=== PATIENT | female | born 1965 | race Caucasian/White ===

== ENCOUNTER 2018-05-10 07:49 | Day surgery (SDC) | payer BC ==
[~2018-05-10] VITALS: Ht 170.2 cm; Wt 108.7 kg
[~2018-05-10 07:49] MED LIST: ALPR.5; ASPI81EC PO; BUSP5 PO; BUTASPCAFT PO; CEPH500 PO; CLON1; CYCL10 PO; DICL25ER PO; ESOM20 PO; ESTR2 PO; FERRO-TIME325 MG PO; HYDACE5 PO; HYDGUAL120 PO; IBUP600; KETO10 PO; ONDA4ODT MM; OXYACE5T PO; OXYC5 PO; PARO20 PO; PRAM.125 PO; PREG50; PROM25 PO; RXHYDACE PO; RXHYDGUAS PO; Super B Comple150 MG PO; TRAM50 PO; TRAZ50 PO; VERA240ER PO; Zanaflex4 M1
== END 2018-05-10 14:20 | disposition home or self-care (01) ==
LOC: ORSCSDS 07:49
PROVIDERS: Otolaryngology
PROC: 0CT80ZZ Resection of Right Parotid Gland, Open Approach (ICD-10-PCS; principal; 2018-05-10 09:00)
PROC: 00BM0ZZ Excision of Facial Nerve, Open Approach (ICD-10-PCS; principal; 2018-05-10 09:00)
DX: K11.23 Chronic sialoadenitis (principal); F17.210 Nicotine dependence, cigarettes, uncomplicated; M79.7 Fibromyalgia; E66.01 Morbid (severe) obesity due to excess calories; Z68.37 Body mass index [BMI] 37.0-37.9, adult; Z79.899 Other long term (current) drug therapy
CPT/HCPCS: 88305; 88307; J0171; J1100; J1885; J2250; J2405; J3010; J7120

== ENCOUNTER → 2018-08-29 | Outpatient (CLI) | payer BC ==
[2018-08-29 16:36] LABS: BASOPHILS ABSOLUTE AUTO 0.01 K/mm3 (0.00-0.23); BASOPHILS PERCENT AUTO 0 % (0-2); EOSINOPHILS ABSOLUTE AUTO 0.01 K/mm3 (0.00-0.68); EOSINOPHILS PERCENT AUTO 0 % (0-6); Hematocrit 34.5 % (33.0-51.0); Hemoglobin 11.2 g/dL (11.5-16.0); IMMATURE GRAN ABSOLUTE AUTO 0.01 K/mm3 (0.00-0.10); IMMATURE GRAN PERCENT AUTO 0 % (0-1); LYMPHOCYTES ABSOLUTE AUTO 1.16 K/mm3 (0.84-5.20); LYMPHOCYTES PERCENT AUTO 23 % (21-46); MONOCYTES ABSOLUTE AUTO 0.26 K/mm3 (0.16-1.47); MONOCYTES PERCENT AUTO 5 % (4-13); Mean Corpuscular HGB Conc 32.5 g/dL (31.5-36.5); Mean Corpuscular Volume 89 fL (80-100); Mean Platelet Volume 9.7 fL (9.1-12.4); NEUTROPHILS ABSOLUTE AUTO 3.64 K/mm3 (1.96-9.15); NEUTROPHILS PERCENT AUTO 72 % (41-73); Platelet Count 254 K/mm3 (150-400); RDW Coefficient Variation 13.9 % (11.7-14.2); RDW Standard Deviation 44.9 fL (35.1-46.3); Red Blood Cell Count 3.86 M/mm3 (3.80-5.20); White Blood Cell Count 5.09 K/mm3 (4.00-11.30)
[2018-08-29 16:52] LABS: Anion Gap 14 mmol/L (6-16); Blood Urea Nitrogen 14 mg/dL (8-24); Bun/Creatinine Ratio 17.3 (12.0-20.0); CO2, Blood 20 mmol/L (21-32); Calcium, Blood 8.5 mg/dL (8.5-10.1); Chloride, Blood 104 mmol/L (98-108); Creatinine, Blood 0.81 mg/dL (0.40-1.00); Glomerular Filtration Rate >60 (60-); Glucose, Blood 191 mg/dL (70-99); Potassium, Blood 3.8 mmol/L (3.5-5.5); Sodium, Blood 138 mmol/L (136-145)
== END ==
LOC: LAB SHORT 16:32 → LAB EV 16:32
PROVIDERS: Emergency Medicine
DX: E86.0 Dehydration (principal)
CPT/HCPCS: 80048; 85025

== ENCOUNTER 2023-11-06 01:22 | Observation (INO) | payer OTHER ==
[~2023-11-06] VITALS: Ht 170.2 cm; Wt 76.2 kg
[2023-11-06] MEDS ORDERED: BUPRENORPHINE HC8 MG SL (01:40)
[2023-11-06] MEDS ORDERED: CELEBREX200 MG PO (01:41)
[2023-11-06] MEDS ORDERED: LANSOPRAZOLE30 MG PO (01:41)
[2023-11-06] MEDS ORDERED: PARO30 PO (01:41)
[2023-11-06] MEDS ORDERED: HYDROCODONE-AC1 EAC7 PO (01:42)
[2023-11-06] MEDS ORDERED: Amphetamine Sal20 MG PO (01:42)
[2023-11-06] MEDS ORDERED: TOPI50 PO (01:43)
[2023-11-06] MEDS ORDERED: Ventolin/Prove6.7 GM (01:43)
[2023-11-06 02:15] LABS: Hematocrit 37.6 % (33.0-51.0); Hemoglobin 12.6 g/dL (11.5-16.0); Mean Corpuscular HGB 32.7 pg (26.0-34.0); Mean Corpuscular HGB Conc 33.5 g/dL (31.5-36.5); Mean Corpuscular Volume 98 fL (80-100); Mean Platelet Volume 9.5 fL (9.1-12.4); Platelet Count 280 K/mm3 (150-400); RDW Coefficient Variation 14.6 % (11.7-14.2); RDW Standard Deviation 50.5 fL (35.1-46.3); Red Blood Cell Count 3.85 M/mm3 (3.80-5.20); White Blood Cell Count 9.58 K/mm3 (4.00-11.30)
[2023-11-06 02:18] LABS: Alanine Aminotransfer (ALT/SGP 22 U/L (12-78); Albumin, Blood 3.1 g/dL (3.4-5.0); Albumin/Globulin Ratio 0.7 (0.8-1.8); Alk Phos 95 U/L (50-136); Anion Gap 1 mmol/L (6-16); Aspartate Aminotrans (AST/SGOT 23 U/L (12-37); Bilirubin, Total <0.1 mg/dL (0.1-1.0); Blood Urea Nitrogen 27 mg/dL (8-24); Bun/Creatinine Ratio 39.6 (12.0-20.0); CO2, Blood 28 mmol/L (21-32); Calcium, Blood 8.4 mg/dL (8.5-10.1); Chloride, Blood 111 mmol/L (98-108); Creatinine, Blood 0.68 mg/dL (0.40-1.00); Globulin, Blood 4.3 g/dL (2.2-4.0); Glomerular Filtration Rate 100 (60-); Glucose, Blood 134 mg/dL (70-99); Potassium, Blood 3.5 mmol/L (3.5-5.5); Sodium, Blood 140 mmol/L (136-145); Total Protein, Blood 7.4 g/dL (6.4-8.2)
[2023-11-06] MEDS ORDERED: NS 1,000 ML IV SCH (02:30)
[2023-11-06] MEDS ORDERED: LevoFLOXacin 750 MG/D5W 150ML 150 ML IV ONE (02:30)
[2023-11-06 02:58] LABS: BASOPHILS PERCENT MAN 0 % (0-2); EOSINOPHILS ABSOLUTE MAN 0.19 K/mm3 (0.00-0.68); EOSINOPHILS PERCENT MAN 2 % (0-6); LYMPHOCYTES % ATYPICAL MANUAL 1 % (0-0); LYMPHOCYTES PERCENT MAN 46 % (21-46); MONOCYTES ABSOLUTE MAN 0.76 K/mm3 (0.16-1.47); MONOCYTES PERCENT MAN 8 % (4-13); NEUTROPHILS ABSOLUTE MAN 4.11 K/mm3 (1.96-9.15); SEG NEUTROPHILS PERCENT MAN 43 % (41-73); TOTAL CELLS COUNTED 100
[2023-11-06 03:04] LABS: Influenza A, PCR NEGATIVE (NEGATIVE); Influenza B, PCR NEGATIVE (NEGATIVE); Resp Syncytial Virus, PCR NEGATIVE (NEGATIVE); SARS-Cov-2 (COVID-19) PCR, MMC NEGATIVE (NEGATIVE)
[2023-11-06] MEDS ORDERED: Acetaminophen 325 MG TABLET PO PRN (04:25)
[2023-11-06] MEDS ORDERED: FLU VACC QS2023-24(6MOS UP)/PF 60 MCG/0.5 ML SYRINGE IM ONE (04:25)
[2023-11-06] MEDS ORDERED: Albuterol 2.5 MG/3 ML VIAL INH PRN (05:10)
[2023-11-06 08:30] VITALS: BP 140/68
[2023-11-06] MEDS ORDERED: Enoxaparin 40 MG/0.4 ML SYR SC SCH (09:00)
[2023-11-06] MEDS ORDERED: Lactobacil 2-S.Thermo-Bifido 1 1 Cap PO SCH (09:00)
[2023-11-07] MEDS ORDERED: LevoFLOXacin 750 MG/D5W 150ML 150 ML IV SCH (09:00)
== END 2023-11-06 08:31 | disposition home or self-care (01) ==
LOC: ER 01:22 → MEDS 01:23
PROVIDERS: Emergency Medicine; ADMIT Student in an Organized Health Care Education/Training Program
DX: J96.01 Acute respiratory failure with hypoxia (principal); F17.210 Nicotine dependence, cigarettes, uncomplicated; J44.1 Chronic obstructive pulmonary disease with (acute) exacerbation; J15.9 Unspecified bacterial pneumonia; Z79.899 Other long term (current) drug therapy; Z88.1 Allergy status to other antibiotic agents; Z88.8 Allergy status to other drugs, medicaments and biological substances
CPT/HCPCS: 0241U; 36415; 71046; 80053; 83605; 84145; 85025; 85379; 87040; 87081; 87430; 93005; 93010; 94760; 96361; 96365; 96366; 99285-25; G0378; J1956; J7030

== ENCOUNTER 2024-05-29 11:06 | Inpatient (IN) | payer OTHER ==
[~2024-05-29] VITALS: Ht 170.2 cm; Wt 68.0 kg
[~2024-05-29 11:06] MED LIST changes: +Amphetamine Sal20 MG PO; +BUPRENORPHINE HC8 MG SL; +CELEBREX200 MG PO; +HYDROCODONE-AC1 EAC7 PO; +LANSOPRAZOLE30 MG PO; +MIRAPEX0.25 M3 PO; +NEBIVOLOL HCL5 MG PO; +PARO30 PO; -PRAM.125 PO; +SPIRIVA RESPIMAT4 G3 INH; +TOPIRAMATE ER50 M1 PO; +TRAZ100 PO; -TRAZ50 PO; +Ventolin/Prove6.7 GM
[2024-05-29] MEDS ORDERED: Ipratropium/Albuterol SulF 2.5-0.5MG/3 ML Amp INH ONE (11:35)
[2024-05-29] MEDS ORDERED: NS 1,000 ML IV SCH (11:35)
[2024-05-29] MEDS ORDERED: Diltiazem HCl 5 MG / ML 5ML Vial IV ONE (11:40)
[2024-05-29 11:43] LABS: BASOPHILS ABSOLUTE AUTO 0.03 K/mm3 (0.00-0.23); BASOPHILS PERCENT AUTO 0 % (0-2); EOSINOPHILS ABSOLUTE AUTO 0.07 K/mm3 (0.00-0.68); EOSINOPHILS PERCENT AUTO 1 % (0-6); Hematocrit 37.3 % (33.0-51.0); Hemoglobin 11.7 g/dL (11.5-16.0); IMMATURE GRAN PERCENT AUTO 1 % (0-1); LYMPHOCYTES ABSOLUTE AUTO 2.75 K/mm3 (0.84-5.20); LYMPHOCYTES PERCENT AUTO 21 % (21-46); MONOCYTES ABSOLUTE AUTO 1.14 K/mm3 (0.16-1.47); MONOCYTES PERCENT AUTO 9 % (4-13); Mean Corpuscular HGB 28.9 pg (26.0-34.0); Mean Corpuscular HGB Conc 31.4 g/dL (31.5-36.5); Mean Corpuscular Volume 92 fL (80-100); Mean Platelet Volume 9.8 fL (9.1-12.4); NEUTROPHILS ABSOLUTE AUTO 9.28 K/mm3 (1.96-9.15); NEUTROPHILS PERCENT AUTO 70 % (41-73); Platelet Count 257 K/mm3 (150-400); RDW Coefficient Variation 15.8 % (11.7-14.2); RDW Standard Deviation 53.8 fL (35.1-46.3); Red Blood Cell Count 4.05 M/mm3 (3.80-5.20); White Blood Cell Count 13.37 K/mm3 (4.00-11.30)
[2024-05-29 11:47] LABS: Base Excess Venous 5.3 mmol/L; Bicarbonate Venous 28.6 mmol/L (24.0-30.0); PCO2 Venous 44.4 mmHg (38-42); pH Blood Venous 7.43 (7.34-7.37)
[2024-05-29 12:05] LABS: Albumin, Blood 1.7 g/dL (3.4-5.0); Albumin/Globulin Ratio 0.3 (0.8-1.8); Bilirubin, Total 0.3 mg/dL (0.1-1.0); Bun/Creatinine Ratio 27.6 (12.0-20.0); Calcium, Blood 9.7 mg/dL (8.5-10.1); Creatinine, Blood 0.44 mg/dL (0.40-1.00); Globulin, Blood 5.1 g/dL (2.2-4.0); Magnesium, Blood 1.8 mg/dL (1.6-2.4); Potassium, Blood 3.3 mmol/L (3.5-5.5); Total Protein, Blood 6.8 g/dL (6.4-8.2)
[2024-05-29 13:06] LABS: Influenza A, PCR NEGATIVE (NEGATIVE); Influenza B, PCR NEGATIVE (NEGATIVE); Resp Syncytial Virus, PCR NEGATIVE (NEGATIVE); SARS-Cov-2 (COVID-19) PCR, MMC NEGATIVE (NEGATIVE)
[2024-05-29] MEDS ORDERED: LevoFLOXacin 750 MG/D5W 150ML 150 ML IV ONE (13:45)
[2024-05-29] MEDS ORDERED: Potassium Chl 20MEQ/Water100ML 100 ML IV SCH (14:00)
[2024-05-29] MEDS ORDERED: NS 1,000 ML IV ONE (14:09)
[2024-05-29] MEDS ORDERED: Ipratropium/Albuterol SulF 2.5-0.5MG/3 ML Amp INH SCH (14:55)
[2024-05-29] MEDS ORDERED: Albuterol 2.5 MG/3 ML VIAL INH PRN (14:55)
[2024-05-29] MEDS ORDERED: TraZODone HCl 100 MG Tab PO PRN (14:55)
[2024-05-29] MEDS ORDERED: Tiotropium Bromide 2.5 MCG/ACT MIST INHAL (10 ACT/4 GM) INH SCH (14:55)
[2024-05-29] MEDS ORDERED: Furosemide 10 MG/ML 4ML Vial IV SCH (15:00)
[2024-05-29] MEDS ORDERED: BUPRENORPHINE HC8 MG SL (15:01)
[2024-05-29] MEDS ORDERED: Metoprolol Tartrate 1 MG/ML 5 ML VIAL IV PRN (15:10)
[2024-05-29 16:55] LABS: U Amphetamine Screen Not Detected; U Barbituate Screen Not Detected; U Benzodiazapine Screen Not Detected; U Buprenorphine Screen DETECTED; U Cannabinoids Screen Not Detected; U Cocaine Screen Not Detected; U Methadone Screen Not Detected; U Methamphetamine Screen Not Detected; U Opiates Screen Not Detected; U Oxycodone Screen Not Detected; U Phencyclidine Screen Not Detected
[2024-05-29] MEDS ORDERED: Carvedilol 6.25 MG Tab PO SCH (17:00)
[2024-05-29 17:46] VITALS: BP 127/73
--- NOTE | 2024-05-29 18:10 | NUR ---
PT ARRIVE TO FLOOR VIA CART AT 1735. PT IS MILDLY CONFUSED AND AO1-2. PT IS CURRENTLY SETTLED INTO ROOM WITH FAMILY AT BEDSIDE. BED ALARM IS PLACED REPORT FROM ED STATED PT HAS BEEN CONFUSED AND IMPULSIVE.CURRENTLY ON 4L TELE READING SINUS TACH @102. PT RESTING IN BED WITH CALL LIGHT WITHIN REACH. WILL CONTINUE TO SCOTT
[2024-05-29] MEDS ORDERED: ONDA4ODT MM (18:42)
[2024-05-29] MEDS ORDERED: OXYCODONE HCL PO (18:45)
[2024-05-29] MEDS ORDERED: LORazepam 2 MG/ML 1ML Injection IV PRN (19:25)
[2024-05-29] MEDS ORDERED: buprenorphine HCL 2 MG TAB.SUBL SL SCH (21:00)
[2024-05-29] MEDS ORDERED: Topiramate 25 MG Tab PO SCH (21:00)
[2024-05-29] MEDS ORDERED: Lactobacil 2-S.Thermo-Bifido 1 1 Cap PO SCH (21:00)
[2024-05-29] MEDS ORDERED: Pramipexole DI-HCL 0.125 MG Tab PO SCH (21:00)
[2024-05-29] MEDS ORDERED: Cyclobenzaprine HCl 10 MG Tab PO SCH (21:00)
[2024-05-30 02:28] VITALS: BP 140/75
[2024-05-30] MEDS ORDERED: Omeprazole 20 MG CapCR PO SCH (06:00)
[2024-05-30 07:43] VITALS: BP 132/85
[2024-05-30] MEDS ORDERED: Estradiol 1 MG Tab PO SCH (09:00)
[2024-05-30] MEDS ORDERED: Enoxaparin 40 MG/0.4 ML SYR SC SCH (09:00)
[2024-05-30] MEDS ORDERED: PARoxetine HCl 20 MG Tab PO SCH (09:00)
[2024-05-30 09:56] VITALS: BP 129/85
[2024-05-30 09:59] LABS: PO2 Arterial 158 mmHg (80-100); pH Blood Arterial 7.25 (7.35-7.45)
[2024-05-30 10:00] LABS: PCO2 Arterial 71 mmHg (35-45)
[2024-05-30 10:11] VITALS: BP 131/85
[2024-05-30 10:13] LABS: BASOPHILS ABSOLUTE AUTO 0.02 K/mm3 (0.00-0.23); BASOPHILS PERCENT AUTO 0 % (0-2); EOSINOPHILS ABSOLUTE AUTO 0.03 K/mm3 (0.00-0.68); EOSINOPHILS PERCENT AUTO 0 % (0-6); Hematocrit 36.5 % (33.0-51.0); Hemoglobin 11.2 g/dL (11.5-16.0); IMMATURE GRAN ABSOLUTE AUTO 0.12 K/mm3 (0.00-0.10); IMMATURE GRAN PERCENT AUTO 1 % (0-1); LYMPHOCYTES ABSOLUTE AUTO 2.35 K/mm3 (0.84-5.20); LYMPHOCYTES PERCENT AUTO 16 % (21-46); MONOCYTES ABSOLUTE AUTO 1.18 K/mm3 (0.16-1.47); MONOCYTES PERCENT AUTO 8 % (4-13); Mean Corpuscular HGB 28.1 pg (26.0-34.0); Mean Corpuscular HGB Conc 30.7 g/dL (31.5-36.5); Mean Corpuscular Volume 92 fL (80-100); Mean Platelet Volume 9.7 fL (9.1-12.4); NEUTROPHILS ABSOLUTE AUTO 10.72 K/mm3 (1.96-9.15); NEUTROPHILS PERCENT AUTO 74 % (41-73); Platelet Count 302 K/mm3 (150-400); RDW Coefficient Variation 16.1 % (11.7-14.2); RDW Standard Deviation 53.9 fL (35.1-46.3); Red Blood Cell Count 3.98 M/mm3 (3.80-5.20); White Blood Cell Count 14.42 K/mm3 (4.00-11.30)
[2024-05-30 10:31] LABS: Albumin, Blood 1.7 g/dL (3.4-5.0); Albumin/Globulin Ratio 0.3 (0.8-1.8); Bilirubin, Total 0.2 mg/dL (0.1-1.0); Bun/Creatinine Ratio 24.3 (12.0-20.0); Calcium, Blood 9.5 mg/dL (8.5-10.1); Creatinine, Blood 0.45 mg/dL (0.40-1.00); Potassium, Blood 3.4 mmol/L (3.5-5.5); Total Protein, Blood 6.7 g/dL (6.4-8.2)
[2024-05-30 10:43] VITALS: BP 153/92
--- NOTE | 2024-05-30 11:04 | NUR ---
Pt Confused and unresponsive, pt on 7L NC, statered to deSat down to 70%, pt placed on 15L non-rebreather, MD notifed. MD order Labs, chest x-ray, ABG, EKG which was ST HR 119, and to give Lasix 40mg IV. Pt transfered to PCU, Bedside shift report given, safety ensured during transfer.
[2024-05-30] MEDS ORDERED: Atropine Sulfate 1% Opth Soln 2ML BTL SL PRN (11:20)
[2024-05-30] MEDS ORDERED: Ondansetron HCl 2 MG / ML 2ML Vial IV PRN (11:20)
[2024-05-30] MEDS ORDERED: LORazepam 2 MG/ML 1ML Injection IV PRN (11:20)
[2024-05-30] MEDS ORDERED: Morphine Sulfate 10 MG/ML 1MLSYR IV PRN (11:20)
[2024-05-30] MEDS ORDERED: Morphine Sulfate 20 MG/1ML 1 ML Oral Syringe SL PRN (11:20)
[2024-05-30] MEDS ORDERED: Scopolamine Hydrobromide Patch TOP PRN (11:20)
[2024-05-30] MEDS ORDERED: Pramipexole DI-HCL 0.125 MG Tab PO PRN (11:30)
[2024-05-30] MEDS ORDERED: Cyclobenzaprine HCl 10 MG Tab PO PRN (11:30)
[2024-05-30] MEDS ORDERED: Ipratropium/Albuterol SulF 2.5-0.5MG/3 ML Amp INH PRN (11:35)
--- NOTE | 2024-05-30 11:53 | NUR ---
MET WITH DR. GUILLORY AND PT'S DTR, AMILCAR AT PT'S BEDSIDE. RAPID RESPONSE WAS CALLED FOR ACUTE CHANGES IN MENTATION. RT, LAB AND IMAGING. WILL MEET WITH FAMILY AFTER TEST RESULTS ARE AVAILABLE. ASSISTED PRIMARY RN WITH TRANSFERING PT TO PCU.
[2024-05-30] MEDS ORDERED: HYDROmorphone HCl/Pf 1MG SYR IV STA (12:06)
[2024-05-30] MEDS ORDERED: Haloperidol Lactate Inj. 5 MG/ML Injection IV PRN (12:25)
--- NOTE | 2024-05-30 13:57 | NUR ---
CHANGE IN STATUS TO COMFORT CARE CALLED TO ROOM BY GOLD TOOLER FOR ADDITIONAL SUPPORT. PT WAS VERY AGGITATED, TRYING TO SCOOT OUT OF BED, THROWING HER LEGS OFF THE SIDE OF BED. PRIMARY RN ADMINISTERING MEDICATIONS VIA IV, REQUIRED A SECOND STAFF MEMBER TO HOLD HER ARM STILL FOR MED ADMINISTRATION. THERAPUTIC LISTENING PROVIDED FOR FAMILY. PT'S SPOUSESARAHI IS DISPLAYING SIGNES OF ANTICIPATORY GREIF. SPOUSE, DAUGHTER, FATHER, BROTHER, NIECE ALL AT BEDSIDE. PC TO REMAIN AVAILABLE NEEDED.
--- NOTE | 2024-05-30 14:38 | NUR ---
PT ARRIVES TO PCU 9 FROM MEDICAL FLOOR IN RESPIRATORY DISTRESS. RT AT BEDSIDE TO PLACE PT ON BIPAP. PT IS EXTREMEMMLY RESTLESS, ATTEMPTING TO CLIMG OUT OF BED AND PULL OFF ALL MONITORING EQUIPMENT ALONG WITH BIPAP. PROVIDER AND WIND TURBINE INSTALLER AT BEDSIDE TO DISCUSS PLAN OF CARE. FLOOR RN AT BEDSIDE FOR BEDSIDE REPORT WITH THIS RN. PT A&OX0. PT RESPONDING TO PAIN AND WILL BRIEFLY OPEN EYES WHEN ASKED BUT WILL NOT FOLLOW ANY OTHER COMMANDS. MULTIPLE STAFF AT BEDSIDE TO REDIRECT PT AND TO REPEATEDLY REPOSITON PT IN BED. PT CONTINUES TO BE RESTLESS AND NONCOMPLIANT WITH BIPAP AND IS TRIPODING IN BED. FAMIILY AT BEDSIDE TO DISCUSS PLAN FOR POSSIBLE INTUBATION WITH CARE TEAM. AFTER FURTHER DISCUSSION AND EDUCATION ABOUT INTUBATION WITH FAMILY, FAMILY DECIDED THAT THEY WOULD LIKE TO PLACE PT ON COMFORT CARE. PT CONTINUES TO BE RESTLESS AND TRYING TO CLIMB OUT OF BED AND REMOVE MONITORING EQUIPMENT AND BIPAP. PT MEDICATED PER PROVIDER EMILY. BIPAP REMOVED AND PT WAS PLACED ON 5L NC. PEARL PLACED AND PT WAS REPOSITIONED IN BED FOR COMFORT. PT APPEARS TO BE RESTING COMFORTABLY IN BED AT THIS TIME. FAMILY REMAINS AT BEDSIDE.
[2024-05-30] MEDS ORDERED: LevoFLOXacin 750 MG/D5W 150ML 150 ML IV SCH (16:00)
--- NOTE | 2024-05-30 18:53 | NUR ---
PT APPEARS TO BE RESTING IN BED COMFORTABLY IN BED SINCE PREVIOUS NOTE. SPIRITUAL CARE CAME TO BEDSIDE TO SEE FAMILY. FAMILY REMAINS AT BEDSIDE. PT WAKING UP OCCASIONALLY AND SMILING AT FAMILY THEN FALLING BACK ASLEEP. PTS BREATHING SOUNDS WET. THIS RN ATTEMPTED TO SUCTION PT AND PT PULLED AWAY FROM THIS RN AFTER THIS RN EXPLAINES PROCEDURE TO PT AND BECAME BRIEFLY AGITATED AND THEN WENT BACK TO SLEEP. ORAL ATROPINE ADMINISTERD. FAMILY REPORTS THAT PT LOOKS LIKE SHE IS RESTING COMFORTABLY. PEARL DRAINING CLEAR YELLOW URINE. NO SIGNIFICANT EVENTS HAPPENEDS SINCE PREVIOUS NOTE.
[2024-05-30] MEDS ORDERED: Furosemide 10 MG/ML 4ML Vial IV SCH (21:00)
--- NOTE | 2024-05-31 04:29 | NUR ---
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 FAMILY AT BEDSIDE OVERNIGHT. PATIENT MEDICATED NEEDED WITH PRN MEDICATIONS FOR AIR HUNGER, PAIN, ANXIETY, AGITATION, AND SECRETIONS. BREATHING LESS LABORED, PATIENT APPEARS MORE COMFORTABLE. WEANED O2, NOW ON ROOM AIR SATS IN THE 60S. Q2H TURNS IMPLEMENTED. GOOD UOP FOLLOWING IV LASIX ADMINISTRATION FOR PULM EDEMA. PEARL CATHETER PRESENT. PENDING HOSPICE CONSULT. WILL CONTINUE TO MEDICATE TO KEEP PATIENT COMFORTABLE. ORAL CARE PROVIDED.
--- NOTE | 2024-05-31 07:39 | NUR ---
Pt's work of breathing noted a bit labored. Coarse breath sounds audible at the bedside. Pt otherwise appears to be non distressed, calm, relaxed and resting with eyes closed. Given roxinol and atropine at this time, as well as scheduled IV lasix. Male visitor at bedside, sleeping in the recliner.
--- NOTE | 2024-05-31 08:33 | NUR ---
Effect of roxinol and made her breathing more relaxed.
--- NOTE | 2024-05-31 09:00 | NUR ---
COMFORT CARE SUPPORTIVE VISIT PT IS ACTIVELY TRANSITIONING TO EOL. BLE COOL TO THE TOUCH. BRONCHIAL SECRETIONS AUDIBLE FROM APX 5 FT AWAY. ACCESSORY MUSCLE BREATHING. PRIMARY RN AT BEDSIDE TO PROVIDE RX INTERVENTIONS FOR EASE OF BREATHING. THERAPUTIC LISTENING PROVIDED FOR PT'S SPOUSE, SARAHI. PC WILL REMAIN AVAILABLE NEEDED.
--- NOTE | 2024-05-31 09:41 | NUR ---
pt repositioned and turned to her left side. Showing some signs of agitation and mild dypsnea. Given Haldol and roxinol for relief. Family at bedside.
--- NOTE | 2024-05-31 10:43 | NUR ---
Given roxanol and atropine per prn orders for discomfort and coarse secretions.
--- NOTE | 2024-05-31 13:34 | NUR ---
Dr Heller was here and pt was pronounced at 1308. Family is at the bedside. Spiritual care Fausto S. here to spend some time with the family.
--- NOTE | 2024-05-31 14:39 | NUR ---
Spiritual care visit conducted. Minutes after patient takes her last breath, I visit with the family. They are grieving appropraitely, I listened as they talked about her medical struggles, her personality and their strong family unit. I then provided an end of life prayer. The family responded well showed signs of being comforted.
--- NOTE | 2024-05-31 20:45 | NUR ---
UPDATE PT'S NEXT OF KIN NOTIFIED THAT REPRESENTIVE FROM [facility] (JUAN DIOR) PICKED UP PT.
== END 2024-05-31 20:50 | DRG 871 ==
LOC: ER 11:06 → PCU 14:40 → MEDS 14:40 → PCU 05-30 10:23
PROVIDERS: Student in an Organized Health Care Education/Training Program; ADMIT Family Medicine
PROC: 5A09357 Assistance with Respiratory Ventilation, Less than 24 Consecutive Hours, Continuous Positive Airway Pressure (ICD-10-PCS; principal; 2024-05-29)
PROC: 0T9B70Z Drainage of Bladder with Drainage Device, Via Natural or Artificial Opening (ICD-10-PCS; 2024-05-29)
PROC: 3E03329 Introduction of Other Anti-infective into Peripheral Vein, Percutaneous Approach (ICD-10-PCS; 2024-05-29)
PROC: 4A033R1 Measurement of Arterial Saturation, Peripheral, Percutaneous Approach (ICD-10-PCS; 2024-05-29)
DX: A41.9 Sepsis, unspecified organism (principal); G92.8 Other toxic encephalopathy; J96.21 Acute and chronic respiratory failure with hypoxia; J18.9 Pneumonia, unspecified organism; J96.22 Acute and chronic respiratory failure with hypercapnia; C78.7 Secondary malignant neoplasm of liver and intrahepatic bile duct; J90 Pleural effusion, not elsewhere classified; J44.0 Chronic obstructive pulmonary disease with (acute) lower respiratory infection; C34.12 Malignant neoplasm of upper lobe, left bronchus or lung; Z66 Do not resuscitate; Z51.5 Encounter for palliative care; F32.A Depression, unspecified; F17.210 Nicotine dependence, cigarettes, uncomplicated; E87.6 Hypokalemia; M79.7 Fibromyalgia; K21.9 Gastro-esophageal reflux disease without esophagitis; J30.2 Other seasonal allergic rhinitis; I48.0 Paroxysmal atrial fibrillation; E89.0 Postprocedural hypothyroidism; E05.00 Thyrotoxicosis with diffuse goiter without thyrotoxic crisis or storm; Z99.81 Dependence on supplemental oxygen; Z88.0 Allergy status to penicillin; Z88.1 Allergy status to other antibiotic agents; Z88.8 Allergy status to other drugs, medicaments and biological substances; Z79.899 Other long term (current) drug therapy; Z98.890 Other specified postprocedural states; Z90.710 Acquired absence of both cervix and uterus; Z90.722 Acquired absence of ovaries, bilateral; Z90.49 Acquired absence of other specified parts of digestive tract; Z98.51 Tubal ligation status; Z85.43 Personal history of malignant neoplasm of ovary
CPT/HCPCS: 0241U; 36415; 36600; 71045; 71046; 71260; 80053; 82803; 83605; 83735; 83880; 84145; 84484; 85025; 85379; 87040; 93005; 93010; 94640; 94660; 94664; 94760; 94762; 96365-59; 96366; 96367-59; 99285-25; A9270; J1170; J1630; J1940; J1956; J2060; J2270; J3480; J7030; Q9967